=== PATIENT | female | born 1995 | race American Indian/Alaskan Native ===

== ENCOUNTER 2020-05-22 10:56 | Observation (INO) | payer SELFPAY ==
--- NOTE | 2020-05-22 11:14 | Event Note ---
ED Screening Note ED Screening Note: [facility] 05/14 TOLD ECTOPIC PREG GOT 2 SHOTS METHOTREXATE THEN SHE HAD BLEEDING 05/16 DEVELOPED ABD PAIN DID NOT FOLLOW UP WITH OBGYN BC OF INSURANCE VSS G2 MIS 1 ECTOP 1 03/16 LMP This initial assessment/diagnostic orders/clinical plan/treatment(s) is/are subject to change based on patients health status, clinical progression and re- assessment by fellow clinical providers in the ED. Further treatment and workup at subsequent clinical providers discretion. Patient/guardian urged not to elope from the ED as their condition may be serious if not clinically assessed and managed. Initial orders include: UA WILL NEED [facility] RECORDS US
[2020-05-22 11:48] LABS: Bilirubin,Urine NEG (Negative); Blood,Urine NEG (Negative); Color,Urine Yellow (Yellow); Mucus,Urine FEW /HPF; Protein,Urine <15 mg/dL mg/dL (Negative); Urobilinogen,Urine < 2.0 mg/dL (<2.0)
--- NOTE | 2020-05-22 12:34 | Ultrasound Report ---
ULTRASOUND OBSTETRIC INDICATION / CLINICAL INFORMATION: abd pain post ectopic. TECHNIQUE: Transabdominal. COMPARISON: None available. FINDINGS: GESTATIONAL SAC: No evidence of a gestational sac, yolk sac or pole within the uterus ADNEXA: However there is a saclike structure in the left adnexa with possible pole measuring 0. 36 cm = 6 weeks 0 days. No heart motion identified. FREE FLUID: None. ADDITIONAL FINDINGS: None. IMPRESSION: 1. Ultrasound findings most consistent with an ectopic on the left CRITICAL RESULT: Time of Discovery: 1120 hours Central time Time of Communication: 1126 hours Central time Licensed Practitioner Receiving Report: Ana Leroy was notified of these findings pers onally by Dr. Davila Read Back Performed: Yes. Signer Name: Simón Davila MD Signed: 05/22/2020 12:30 PM Workstation Name: [id number]
--- NOTE | 2020-05-22 13:13 | Emergency Department Report ---
ED General Adult HPI - General Chief complaint: Abdominal Pain Stated complaint: ECTOPIC /CRAMPING Time Seen by Provider: 05/22/20 11:11 Source: patient Mode of arrival: Ambulatory Limitations: No Limitations - History of Present Illness Initial comments: 25-year-old female presenting with chief complaint of pelvic pain over the past couple weeks. She states that she was seen at [facility], diagnosed with ectopic and given an injection of methotrexate on May 14. She states that she has had persistent pain though no bleeding prompting her to come here today. She states she has been unable to follow-up outpatient due to insurance issue. Pain is mild to moderate, no alleviating or exacerbating factors. No other associated symptoms. Does not radiate. - Related Data Allergies Allergy/AdvReac Type Severity Reaction Status Date / Time No Known Allergies Allergy Unverified 05/22/20 11:01 ED Review of Systems ROS: Stated complaint: ECTOPIC /CRAMPING Other details as noted in HPI Comment: All other systems reviewed and negative Gastrointestinal: as per HPI Genitourinary: as per HPI ED Past Medical Hx - Past Medical History Previous Medical History?: No - Surgical History Past Surgical History?: No - Social History Smoking Status: Never Smoker Substance Use Type: None ED Physical Exam - General Limitations: No Limitations General appearance: alert, in no apparent distress - Head Head exam: Present: atraumatic, normocephalic - Eye Eye exam: Present: normal appearance - ENT ENT exam: Present: mucous membranes moist - Neck Neck exam: Present: normal inspection - Respiratory Respiratory exam: Present: normal lung sounds bilaterally. Absent: respiratory distress - Cardiovascular Cardiovascular Exam: Present: regular rate, normal rhythm. Absent: systolic murmur, diastolic murmur, rubs, gallop - GI/Abdominal GI/Abdominal exam: Present: soft, tenderness (Left pelvic), normal bowel sounds. Absent: distended - Extremities Exam Extremities exam: Present: normal inspection - Back Exam Back exam: Present: normal inspection - Neurological Exam Neurological exam: Present: alert, oriented X3 - Psychiatric Psychiatric exam: Present: normal affect, normal mood - Skin Skin exam: Present: warm, dry, intact, normal color. Absent: rash ED Course Vital Signs 05/22/20 11:01 Temperature 97.5 F L Pulse Rate 89 Respiratory 18 Rate Blood Pressure 126/80 O2 Sat by Pulse 98 Oximetry ED Medical Decision Making - Lab Data Result diagrams: 05/22/20 13:09 05/22/20 13:09 - Radiology Data Radiology results: report reviewed Left adnexal mass consistent with ectopic - Medical Decision Making Patient presented with persistent pain after being treated for an ectopic at another facility 8 days ago. On my exam she does have some left- sided pelvic tenderness. Labs are pending. Ultrasound was obtained and shows a left adnexal mass consistent with ectopic . We will discuss with OB/G YN. I discussed findings of work-up today with Dr. Saint Leavitt, FOREP[employer] REDUCER who request patient receive an additional dose of methotrexate and then be admitted for observation to her service. I discussed this with the patient and she is in agreement with this plan. - Differential Diagnosis Ectopic , UTI Critical Care Time: Yes Critical care time in (mins) excluding proc time.: 31 (ectopic) Critical care attestation.: If time is entered above; I have spent that time in minutes in the direct care of this critically ill patient, excluding procedure time. ED Disposition Clinical Impression: Ectopic Qualifiers: Location of ectopic : tubal Intrauterine status: without intrauterine Laterality: left Qualified Code(s): O00.102 - Left tubal without intrauterine Disposition: - OP ADMIT IP TO THIS HOSP Is pt being admited?: Yes Condition: Stable Instructions: Abdominal Pain (ED) Referrals: PRIMARY CARE, [Primary Care Provider] - 3-5 Days
[2020-05-22 13:45] LABS: Basophils % (Auto) 0.6 % (0.0-1.8); Eosinophils # (Auto) 0.2 K/mm3 (0.0-0.4); Eosinophils % (Auto) 3.2 % (0.0-4.3); Hematocrit 39.1 % (30.3-42.9); Hemoglobin 13.3 gm/dl (10.1-14.3); Lymphocytes # (Auto) 2.1 K/mm3 (1.2-5.4); Lymphocytes % (Auto) 32.1 % (13.4-35.0); Mean Corpuscular HGB Conc 34 % (30-34); Mean Corpuscular Volume 86 fl (79-97); Monocytes # (Auto) 0.4 K/mm3 (0.0-0.8); Monocytes % (Auto) 5.9 % (0.0-7.3); Platelet Count 349 K/mm3 (140-440); Red Blood Count 4.57 M/mm3 (3.65-5.03); Red Cell Distribution Width 14.2 % (13.2-15.2)
[2020-05-22 13:57] LABS: Alanine Aminotransferase 18 units/L (7-56); Blood Urea Nitrogen 9 mg/dL (7-17); Calcium 9.3 mg/dL (8.4-10.2); Hemolysis Index 6
[2020-05-22 14:04] LABS: BUN/Creatinine Ratio 13
[2020-05-22] MEDS ORDERED: SODIUM CHLORIDE 0.9% 1000 ML 1,000 ML IV SCH (15:00)
[2020-05-22] MEDS ORDERED: oxyCODONE /ACETAMINOPHEN 5-325MG TAB PO PRN ×2 (20:03)
[2020-05-22] MEDS: D5W/LACTATED RINGERS 1,000 ML IV SCH (21:22)
[2020-05-23] MEDS: D5W/LACTATED RINGERS 1,000 ML IV SCH (05:14)
--- NOTE | 2020-05-23 10:11 | Progress Note ---
Assessment and Plan - Patient Problems (1) Ectopic Current Visit: Yes Status: Acute Qualifiers: Location of ectopic : tubal Intrauterine status: without intrauterine Laterality: left Qualified Code(s): O00.102 - Left tubal without intrauterine Plan to address problem: will continue medical management of ectopic secondary to patient remaining hemodynamically and clinically stable Recommend follow-up in 1 week for reevaluation hCG levels continue to decline Subjective - Subjective Date of service: 05/23/20 Interval history: 25-year-old who presents with a history of a left ectopic . The patient is status post methotrexate therapy May 14 and she represented with pelvic pain however no evidence of active bleeding. Pelvic ultrasound in the emergency department confirmed findings of a left ectopic without evidence of cardiac activity. The patient was readmitted for observation and received a second methotrexate dose. She remains clinically stable at this time. Today the patient reports that her pain is significantly improved. Patient reports: appetite normal Objective - Vital Signs Latest vital signs: Vital Signs Temp Pulse Resp BP BP Pulse Ox 05/23/20 07:46 97.7 F 75 16 129/77 97 05/23/20 06:35 97.0 F L 69 18 127/76 100 05/23/20 00:36 97.9 F 95 H 20 126/75 96 05/22/20 21:11 97.7 F 97 H 24 98 05/22/20 21:10 97.7 F 97 H 24 137/86 98 05/22/20 18:50 97.5 F L 18 133/81 05/22/20 18:31 98.7 F 76 17 128/87 100 05/22/20 17:19 98.7 F 76 17 128/87 100 05/22/20 11:01 97.5 F L 89 18 126/80 98 Intake and Output 05/22/20 05/23/20 05/23/20 22:59 06:59 14:59 Intake Total 360 983.333 Balance 360 983.333 Intake: IV 983.333 D5lr 1,000 ml @ 125 mls/ 983.333 hr IV DIRECT JANES Rx#: [id number] Intake, Free Water 360 Other: Voiding Method Toilet Toilet # Voids Void 1 - Labs Labs: Abnormal lab results 05/22/20 05/22/20 05/23/20 Range/Units 12:14 13:09 07:29 Glucose 110 H (65-100) mg/dL HCG, Quant 440.3 H 305.1 H (0-4) mIU/mL
--- NOTE | 2020-05-23 10:17 | Short Stay Summary ---
Short Stay Documentation Date of service: 05/23/20 Narrative H&P: 25-year-old who presents with findings of a left ectopic . The patient is status post methotrexate therapy May 14 and represented to the ED with a complaint of pelvic pain. Pelvic ultrasound confirmed findings of a contained left ectopic without evidence of active bleeding and no evidence of a hemoperitoneum. The patient was admitted for observation continued to have improvement in symptoms. She received an additional dose of methotrexate during the hospitalization. - History Principal diagnosis: Ectopic Past Medical History: No medical history Past Surgical History: No surgical history Social history: single - Allergies and Medications Current Medications: Allergies No Known Allergies Allergy (Unverified 05/22/20 11:01) Home Medications Medication Instructions Recorded Confirmed Last Taken Type HYDROcodone/APAP 5-325 [Madison 1 each PO Q6HR PRN #20 tablet 05/23/20 Unknown Rx 5/325] Active Medications Dextrose/Lactated Ringer's (D5lr) 1,000 mls @ 125 mls/hr IV DIRECT JANES Last Admin: 05/23/20 05:14 Dose: 125 mls/hr Documented by: Oxycodone/Acetaminophen (Oxycodone /Acetaminophen 5-325mg Tab) 1 tab PO Q6H PRN PRN Reason: Pain, Moderate (4-6) Last Admin: 05/22/20 21:37 Dose: 1 tab Documented by: Oxycodone/Acetaminophen (Oxycodone /Acetaminophen 5-325mg Tab) 2 tab PO Q6H PRN PRN Reason: Pain , Severe (7-10) Sodium Chloride (Sodium Chloride 0.9% 10 Ml Flush Syringe) 10 ml IV PRN PRN PRN Reason: LINE FLUSH - Hospital course Hospital course: 25-year-old admitted for an ectopic that was was hemodynamically and clinically stable. The patient was admitted for observation received a second dose of methotrexate. Pelvic ultrasound did not demonstrate any evidence of active bleeding or hemoperitoneum. - Disposition Condition at discharge: Good Disposition: - TO HOME OR SELFCARE - Discharge Diagnoses (1) Ectopic Status: Acute Qualifiers: Location of ectopic : tubal Intrauterine status: without intrauterine Laterality: left Qualified Code(s): O00.102 - Left tubal without intrauterine Short Stay Discharge Plan Activity: other (Pelvic rest) Diet: regular Additional Instructions: Schedule follow-up with primary INSPECTOR [employer] provider in 1 week Bleeding and pain precautions given. Patient may follow-up with Dr. Sood in [address] [place] [address] [place] [address] [phone] Forms: Work/School Excuse Out Patient, Work/School Release Form Prescriptions: HYDROcodone/APAP 5-325 [Madison 5/325] 1 each PO Q6HR PRN #20 tablet PRN Reason: Pain
[2020-05-23 11:55] VITALS: BP 132/88
== END 2020-05-23 11:55 | disposition home or self-care (01) ==
LOC: ED 10:56 → OB 16:41
PROVIDERS: ADMIT Obstetrics & Gynecology; ATTEND Obstetrics & Gynecology
DX: O00.102 Left tubal pregnancy without intrauterine pregnancy (principal); Z3A.01 Less than 8 weeks gestation of pregnancy
CPT/HCPCS: 36415; 76801; 76817; 80053; 81001; 84702; 85025; 86850; 86900; 86901; 96360; 96361; 96372; 99291; G0378; J7121; J9260

== ENCOUNTER 2020-11-23 12:50 | Emergency (ER) | payer MEDICAID ==
[2020-11-23 13:25] VITALS: BP 122/55
[2020-11-23] MEDS ORDERED: ACETAMINOPHEN 325 MG TAB PO ONE (15:45)
--- NOTE | 2020-11-23 15:45 | Emergency Department Report ---
ED HPI - General Chief complaint: Vaginal Bleeding Stated complaint: SPOTTING Time Seen by Provider: 11/23/20 15:01 Source: patient Mode of arrival: Ambulatory Limitations: No Limitations - History of Present Illness Initial comments: 25-year-old female presents to the ER today with complaints of vaginal spotting. Patient states that when she went to use the bathroom today and when she wiped she noticed dark brown blood on the tissue. Patient states that she is currently approximately 6 weeks based on her last menstrual cycle which is October 17, 2020. Patient states that she had confirmation of last week of life cycle FACETOR. She does not have a follow-up visit scheduled as yet because she is waiting on her insurance to be approved. In addition to the vaginal spotting she states that she started with mild intermittent lower abdominal discomfort 3 days ago but recently started having discomfort also in the epigastric area. She reports no nausea or vomiting. She reports no diarrhea or any other bowel changes. She denies any UTI symptoms or any abnormal vaginal discharge. Patient states that she is concerned because she had an ectopic in May 2020 requiring had to have 4 methotrexate injections. She is and one ectopic and 2 spontaneous miscarriages. Complaint: vaginal bleeding -: days(s) (1) - Related Data Previous Rx's Medication Instructions Recorded Last Taken Type HYDROcodone/APAP 5-325 [Almo 1 each PO Q6HR PRN #20 tablet 05/23/20 Unknown Rx 5/325] Allergies Allergy/AdvReac Type Severity Reaction Status Date / Time No Known Allergies Allergy Unverified 05/22/20 11:01 ED Review of Systems ROS: Stated complaint: SPOTTING Other details as noted in HPI Comment: All other systems reviewed and negative Constitutional: denies: chills, fever Eyes: denies: eye pain, eye discharge, vision change ENT: denies: ear pain, throat pain, dental pain, hearing loss, epistaxis, congestion Respiratory: denies: cough, orthopnea, shortness of breath, SOB with exertion, SOB at rest, wheezing Cardiovascular: denies: chest pain, palpitations, dyspnea on exertion, orthopn ea, edema, syncope, paroxysmal nocturnal dyspnea Gastrointestinal: abdominal pain. denies: nausea, vomiting, diarrhea, constipation, hematemesis, melena, hematochezia Genitourinary: other (Abnormal vaginal bleeding) Musculoskeletal: denies: back pain, joint swelling, arthralgia Skin: denies: rash, lesions Neurological: denies: headache, weakness, numbness, paresthesias, confusion, abnormal gait, vertigo Psychiatric: denies: anxiety, depression, auditory hallucinations, visual hallucinations, homicidal thoughts, suicidal thoughts Hematological/Lymphatic: denies: easy bleeding, easy bruising, swollen glands ED Past Medical Hx - Past Medical History Previous Medical History?: Yes Additional medical history: Ectopic - Surgical History Past Surgical History?: Yes Additional Surgical History: ectopic - Social History Smoking Status: Never Smoker Substance Use Type: None - Medications Home Medications: Home Medications Medication Instructions Recorded Confirmed Last Taken Type HYDROcodone/APAP 5-325 [Almo 1 each PO Q6HR PRN #20 tablet 05/23/20 Unknown Rx 5/325] ED Physical Exam - General Limitations: No Limitations General appearance: alert, in no apparent distress - Head Head exam: Present: atraumatic, normocephalic, normal inspection - Eye Eye exam: Present: normal appearance, PERRL, EOMI Pupils: Present: normal accommodation - ENT ENT exam: Present: normal exam, mucous membranes moist - Neck Neck exam: Present: normal inspection, full ROM. Absent: tenderness - Respiratory Respiratory exam: Present: normal lung sounds bilaterally. Absent: respiratory distress, wheezes, rales, rhonchi - Cardiovascular Cardiovascular Exam: Present: regular rate, normal rhythm, normal heart sounds - GI/Abdominal GI/Abdominal exam: Present: soft, tenderness (Mild tenderness to the right lower quadrant without any McBurney's point tenderness, no guarding, rebound or rigidity). Absent: distended - Neurological Exam Neurological exam: Present: alert, oriented X3, CN II-XII intact, normal gait - Psychiatric Psychiatric exam: Present: normal affect, normal mood - Skin Skin exam: Present: intact ED Course Vital Signs 11/23/20 11/23/20 11/23/20 13:23 17:05 17:36 Temperature 99 F Pulse Rate 79 Respiratory 20 16 20 Rate Blood Pressure 122/55 O2 Sat by Pulse 100 Oximetry ED Medical Decision Making - Lab Data Result diagrams: 11/23/20 15:47 11/23/20 15:47 - Radiology Data Radiology results: report reviewed Patient: MO MARTINEZ MR#: [id number] : 1995 Acct:[id number] Age/Sex: 25 / F ADM Date: 11/23/20 Loc: ED Attending Dr: Ordering Physician: MARY JO MULLIGAN Date of Service: 11/23/20 Procedure(s): US OB limited Accession Number(s): [id number] cc: MARY JO MULLIGAN ULTRASOUND PELVIS INDICATION: vag spotting, about 6wks/hx ectopic. TECHNIQUE: Transabdominal. Transvaginal Duplex Color Doppler used: Yes. COMPARISON: None available FINDINGS: Uterus: Present. Size: 7.3 x 4.7 x 6.8 cm. Endometrial complex: Early viable intrauterine dated 7 weeks 0 days. heart tones 127 bpm. Small subchorionic hemorrhage. Mass lesions: None. Additional findings: None. Right Ovary -- Normal. Blood flow: Normal. Cyst or mass: 2.7 cm complex cystic lesion right ovary. Left Ovary-- Normal. Blood flow: Normal. Cyst or mass: None. Urinary Bladder: Normal. Free Fluid: Moderate Additional Findings: None. IMPRESSION: 1. Early viable intrauterine dated 7 weeks 0 days with small subchorionic hemorrhage. 2. Moderate free fluid. 3. Probable corpus luteum cyst right ovary. Signer Name: Jovi Baugh MD Signed: 11/23/2020 5:08 PM Workstation Name: [id number] Transcribed By: ES Dictated By: Jovi Baugh MD Electronically Authenticated By: Jovi Baugh MD Signed Date/Time: 11/23/20 1708 - Medical Decision Making Patient resting comfortably. She is not currently in any acute distress. She actually reports improvement of her pain after Tylenol (3/10). She has a soft nonsurgical abdominal exam. She is well-appearing and nontoxic and neurologically intact. Her vital signs are stable. Labs reviewed --CBC and CMP unremarkable. Urinalysis [place] [id number]. OB ultrasound shows a 7 weeks intrauterine , small subchorionic bleed and moderate free fluid and a corpus luteum cyst. Discussed lab and imaging results with patient. She reported no worsening bleeding since she has been in the ER. Patient states she is hoping to have her first appointment with her FACETOR with hopes that her insurance will be approved by then. Recommend that she follows up but if her symptoms worsens or changes in any way to return to the ER. In the meantime recommend no strenuous activity or sexual contact and she can take Tylenol for pain. Patient expressed understanding of instructions and agree with plan. Patient was stable at time of discharge. Critical care attestation.: If time is entered above; I have spent that time in minutes in the direct care of this critically ill patient, excluding procedure time. ED Disposition Clinical Impression: Threatened miscarriage, Subchorionic bleed Disposition: DC- TO HOME OR SELFCARE Is pt being admited?: No Does the pt Need Aspirin: No Condition: Stable Instructions: Threatened Miscarriage, Subchorionic Hematoma Additional Instructions: I recommend you take Tylenol as needed for pain. Recommend no strenuous activity of sexual intercourse until follow-up with FACETOR. Return to the ER if your pain or bleeding worsens in any way. Referrals: PRIMARY CARE, [Primary Care Provider] - 3-5 Days Forms: Work/School Release Form(ED) Time of Disposition: 17:33
[2020-11-23 16:05] LABS: Basophils # (Auto) 0.1 K/mm3 (0.0-0.1); Basophils % (Auto) 1.3 % (0.0-1.8); Eosinophils # (Auto) 0.1 K/mm3 (0.0-0.4); Eosinophils % (Auto) 2.2 % (0.0-4.3); Hematocrit 39.4 % (30.3-42.9); Hemoglobin 13.4 gm/dl (10.1-14.3); Lymphocytes # (Auto) 2.2 K/mm3 (1.2-5.4); Lymphocytes % (Auto) 32.7 % (13.4-35.0); Mean Corpuscular HGB Conc 34 % (30-34); Mean Corpuscular Volume 85 fl (79-97); Monocytes # (Auto) 0.5 K/mm3 (0.0-0.8); Monocytes % (Auto) 7.8 % (0.0-7.3); Platelet Count 332 K/mm3 (140-440); Red Blood Count 4.65 M/mm3 (3.65-5.03); Red Cell Distribution Width 14.6 % (13.2-15.2)
[2020-11-23 16:23] LABS: Alanine Aminotransferase 13 units/L (7-56); Albumin 4.2 g/dL (3.9-5); Blood Urea Nitrogen 7 mg/dL (7-17); Calcium 9.7 mg/dL (8.4-10.2); Hemolysis Index 10
[2020-11-23 16:24] LABS: BUN/Creatinine Ratio 10
[2020-11-23 16:38] LABS: Bilirubin,Urine NEG (Negative); Blood,Urine NEG (Negative); Color,Urine Yellow (Yellow); Mucus,Urine FEW /HPF; Protein,Urine <15 mg/dL mg/dL (Negative); Urobilinogen,Urine < 2.0 mg/dL (<2.0)
== END 2020-11-23 17:41 | disposition home or self-care (01) ==
LOC: ED 12:50
DX: O20.0 Threatened abortion (principal); O20.8 Other hemorrhage in early pregnancy; Z3A.01 Less than 8 weeks gestation of pregnancy; Z98.890 Other specified postprocedural states; Z79.899 Other long term (current) drug therapy
CPT/HCPCS: 36415; 76801; 76815; 76817; 80053; 81001; 84702; 85025; 86900; 86901; 99284

== ENCOUNTER 2020-12-13 03:17 | Emergency (ER) | payer MEDICAID ==
[2020-12-13 06:09] LABS: Basophils # (Auto) 0.1 K/mm3 (0.0-0.1); Basophils % (Auto) 0.6 % (0.0-1.8); Eosinophils # (Auto) 0.2 K/mm3 (0.0-0.4); Eosinophils % (Auto) 2.3 % (0.0-4.3); Hematocrit 39.3 % (30.3-42.9); Hemoglobin 13.3 gm/dl (10.1-14.3); Lymphocytes # (Auto) 3.1 K/mm3 (1.2-5.4); Lymphocytes % (Auto) 32.8 % (13.4-35.0); Mean Corpuscular HGB Conc 34 % (30-34); Mean Corpuscular Volume 85 fl (79-97); Monocytes # (Auto) 0.6 K/mm3 (0.0-0.8); Monocytes % (Auto) 6.5 % (0.0-7.3); Platelet Count 309 K/mm3 (140-440); Red Cell Distribution Width 14.5 % (13.2-15.2)
[2020-12-13 06:24] LABS: Bacteria,Urine 1+ /HPF (Negative); Bilirubin,Urine NEG (Negative); Blood,Urine NEG (Negative); Color,Urine Colorless (Yellow); Protein,Urine <15 mg/dL mg/dL (Negative); RBC,Urine < 1.0 /HPF (0.0-6.0); Urobilinogen,Urine < 2.0 mg/dL (<2.0); WBC,Urine < 1.0 /HPF (0.0-6.0)
--- NOTE | 2020-12-13 08:52 | Emergency Department Report ---
<DANIELLE AYALA - Last Filed: 12/13/20 09:47> ED HPI - General Chief complaint: Urogenital-Female Stated complaint: VAGINAL DISCHARGE/9WKS Time Seen by Provider: 12/13/20 07:41 Source: patient Mode of arrival: Ambulatory Limitations: No Limitations - History of Present Illness Initial comments: 25-year-old female 9 weeks presents to the ER c/o mucus-like discharge from her vagina yesterday. She denies any vaginal bleeding she denies abdominal pain . She reports seeing her [facility] 2 days ago( [facility] ). she has a follow-up appointment with them next for a repeat ultrasound. Review of records revealed that patient was seen in this emergency room on November 23 transvaginal ultrasound showed 7 weeks viable intrauterine . She is in no distress currently with no abdominal pain. Associated symptoms: denies other symptoms Vaginal bleeding: none Pre- care: followed by OB - Related Data : 2 Para: 0 Ab: 2 (Miscarriages 1 ectopic) Previous Rx's Medication Instructions Recorded Last Taken Type HYDROcodone/APAP 5-325 [[place] 1 each PO Q6HR PRN #20 tablet 05/23/20 Unknown Rx 5/325] Allergies Allergy/AdvReac Type Severity Reaction Status Date / Time No Known Allergies Allergy Unverified 05/22/20 11:01 ED Review of Systems Comment: All other systems reviewed and negative Constitutional: no symptoms reported Cardiovascular: as per HPI Endocrine: no symptoms reported Gastrointestinal: nausea. denies: abdominal pain, diarrhea, constipation, hematemesis Genitourinary: discharge (Mucoid discharge). denies: urgency, hematuria Musculoskeletal: denies: back pain, joint swelling Neurological: headache (Mild headache). denies: weakness ED Past Medical Hx - Past Medical History Previous Medical History?: Yes Additional medical history: Ectopic - Surgical History Past Surgical History?: Yes Additional Surgical History: ectopic - Social History Smoking Status: Never Smoker Substance Use Type: None - Medications Home Medications: Home Medications Medication Instructions Recorded Confirmed Last Taken Type HYDROcodone/APAP 5-325 [[place] 1 each PO Q6HR PRN #20 tablet 05/23/20 Unknown Rx 5/325] ED Physical Exam - General Limitations: No Limitations General appearance: alert, in no apparent distress - Head Head exam: Present: atraumatic - Eye Eye exam: Present: normal appearance - ENT ENT exam: Present: normal exam - Neck Neck exam: Present: normal inspection - Respiratory Respiratory exam: Present: normal lung sounds bilaterally. Absent: respiratory distress, wheezes, rales - Cardiovascular Cardiovascular Exam: Present: regular rate, normal heart sounds - GI/Abdominal GI/Abdominal exam: Present: soft. Absent: distended, tenderness, guarding, rebound - Rectal Rectal exam: Absent: deferred - Extremities Exam Extremities exam: Present: normal inspection - Back Exam Back exam: Present: normal inspection. Absent: CVA tenderness (R), CVA tenderness (L) - Neurological Exam Neurological exam: Present: alert, oriented X3 - Psychiatric Psychiatric exam: Present: normal affect - Skin Skin exam: Present: warm, dry, intact, normal color ED Course - Reevaluation(s) Reevaluation #1: 12/13/20 09:30 Patient with in no distress reports no vaginal bleeding no abdominal pain ED Medical Decision Making - Lab Data Result diagrams: 12/13/20 05:34 - Medical Decision Making 25-year-old female 9 weeks presents to the emergency room stating that she passed a mucoid-like discharge from her vagina yesterday. She denies any abdominal pain no vaginal bleeding she was last seen by her [facility] 2 days ago. She is scheduled for follow-up with [facility] next week.she has a ultrasound scheduled for next . Blood work has no acute findings .normal limits hCG quant. Her urine shows no signs of infection. Plan is for p atient to continue follow-up with [facility]. Review of records revealed ultrasound report that shows viable intrauterine on November 23, 2020 - Differential Diagnosis Normal Critical Care Time: No ED Disposition Clinical Impression: Positive test, History of vaginal discharge Disposition: - TO HOME OR SELFCARE Is pt being admited?: No Does the pt Need Aspirin: No Condition: Stable Instructions: First Trimester of , [id number], Eating Plan for Women Additional Instructions: Return to the emergency room if you develop abdominal pain and vaginal bleeding. Follow-up with [facility] as scheduled. Continue to rest eat balanced meals drink plenty of fluids. Referrals: PRIMARY CARE, [Primary Care Provider] - 3-5 Days Time of Disposition: 09:37 <TERESA TINSLEY - Last Filed: 12/13/20 15:48> ED Review of Systems ROS: Stated complaint: VAGINAL DISCHARGE/9WKS Other details as noted in HPI ED Course Vital Signs 12/13/20 12/13/20 05:00 10:03 Temperature 98.3 F Pulse Rate 78 70 Respiratory 18 18 Rate Blood Pressure 136/64 Blood Pressure 118/68 [Left] O2 Sat by Pulse 100 100 Oximetry ED Medical Decision Making - Lab Data Result diagrams: 12/13/20 05:34 Vital Signs 12/13/20 12/13/20 05:00 10:03 Temperature 98.3 F Pulse Rate 78 70 Respiratory 18 18 Rate Blood Pressure 136/64 Blood Pressure 118/68 [Left] O2 Sat by Pulse 100 100 Oximetry Lab Results 12/13/20 12/13/20 12/13/20 Range/Units 05:34 05:34 05:34 WBC 9.6 (4.5-11.0) K/mm3 RBC 4.60 (3.65-5.03) M/mm3 Hgb 13.3 (10.1-14.3) gm/dl Hct 39.3 (30.3-42.9) % MCV 85 (79-97) fl MCH 29 (28-32) pg MCHC 34 (30-34) % RDW 14.5 (13.2-15.2) % Plt Count 309 (140-440) K/mm3 Lymph % (Auto) 32.8 (13.4-35.0) % [place] % (Auto) 6.5 (0.0-7.3) % Eos % (Auto) 2.3 (0.0-4.3) % Baso % (Auto) 0.6 (0.0-1.8) % Lymph # (Auto) 3.1 (1.2-5.4) K/mm3 [place] # (Auto) 0.6 (0.0-0.8) K/mm3 Eos # (Auto) 0.2 (0.0-0.4) K/mm3 Baso # (Auto) 0.1 (0.0-0.1) K/mm3 Seg Neutrophils % 57.8 (40.0-70.0) % Seg Neutrophils # 5.5 (1.8-7.7) K/mm3 HCG, Quant [id number] H (0-4) mIU/mL Urine Color (Yellow) Urine Turbidity (Clear) Urine pH (5.0-7.0) Ur Specific [place] (1.003-1.030) Urine Protein (Negative) mg/dL Urine Glucose (UA) (Negative) mg/dL Urine Ketones (Negative) mg/dL Urine Blood (Negative) Urine Nitrite (Negative) Urine Bilirubin (Negative) Urine Urobilinogen (<2.0) mg/dL Ur Leukocyte Esterase (Negative) Urine WBC (Auto) (0.0-6.0) /HPF Urine RBC (Auto) (0.0-6.0) /HPF U Epithel Cells (Auto) (0-13.0) /HPF Urine Bacteria (Auto) (Negative) /HPF Blood Type O POSITIVE 12/13/20 Range/Units Unknown WBC (4.5-11.0) K/mm3 RBC (3.65-5.03) M/mm3 Hgb (10.1-14.3) gm/dl Hct (30.3-42.9) % MCV (79-97) fl MCH (28-32) pg MCHC (30-34) % RDW (13.2-15.2) % Plt Count (140-440) K/mm3 Lymph % (Auto) (13.4-35.0) % [place] % (Auto) (0.0-7.3) % Eos % (Auto) (0.0-4.3) % Baso % (Auto) (0.0-1.8) % Lymph # (Auto) (1.2-5.4) K/mm3 [place] # (Auto) (0.0-0.8) K/mm3 Eos # (Auto) (0.0-0.4) K/mm3 Baso # (Auto) (0.0-0.1) K/mm3 Seg Neutrophils % (40.0-70.0) % Seg Neutrophils # (1.8-7.7) K/mm3 HCG, Quant (0-4) mIU/mL Urine Color Colorless (Yellow) Urine Turbidity Clear (Clear) Urine pH 6.0 (5.0-7.0) Ur Specific [place] 1.003 (1.003-1.030) Urine Protein <15 mg/dl (Negative) mg/dL Urine Glucose (UA) Neg (Negative) mg/dL Urine Ketones Neg (Negative) mg/dL Urine Blood Neg (Negative) Urine Nitrite Neg (Negative) Urine Bilirubin Neg (Negative) Urine Urobilinogen < 2.0 (<2.0) mg/dL Ur Leukocyte Esterase Neg (Negative) Urine WBC (Auto) < 1.0 (0.0-6.0) /HPF Urine RBC (Auto) < 1.0 (0.0-6.0) /HPF U Epithel Cells (Auto) 1.0 (0-13.0) /HPF Urine Bacteria (Auto) 1+ (Negative) /HPF Blood Type Critical care attestation.: If time is entered above; I have spent that time in minutes in the direct care of this critically ill patient, excluding procedure time. ED Disposition Is pt being admited?: No Does the pt Need Aspirin: No
[2020-12-13 10:03] VITALS: BP 118/68
== END 2020-12-13 10:03 | disposition home or self-care (01) ==
LOC: ED 03:17
DX: O26.891 Other specified pregnancy related conditions, first trimester (principal); N89.8 Other specified noninflammatory disorders of vagina; Z3A.09 9 weeks gestation of pregnancy; Z79.899 Other long term (current) drug therapy; Z98.890 Other specified postprocedural states
CPT/HCPCS: 36415; 81001; 84702; 85025; 86900; 86901

== ENCOUNTER 2021-03-31 14:54 | Outpatient (CLI) | payer MEDICAID ==
[2021-03-31 15:01] VITALS: BP 124/63
[2021-03-31] MEDS ORDERED: LACTATED RINGERS 1,000 ML IV ONE (16:05)
[2021-03-31 17:34] LABS: Bilirubin,Urine NEG (Negative); Blood,Urine NEG (Negative); Color,Urine Yellow (Yellow); Mucus,Urine FEW /HPF; Protein,Urine <15 mg/dL mg/dL (Negative); Urobilinogen,Urine < 2.0 mg/dL (<2.0)
== END 2021-03-31 17:30 | disposition home or self-care (01) ==
LOC: TRG 14:54 → APU 14:54 → TRG 17:30
PROVIDERS: ATTEND Obstetrics & Gynecology
DX: Z34.92 Encounter for supervision of normal pregnancy, unspecified, second trimester (principal); Z3A.24 24 weeks gestation of pregnancy
CPT/HCPCS: 59025; 81001

== ENCOUNTER 2021-06-30 12:13 | Outpatient (CLI) | payer MEDICAID ==
[2021-06-30 12:51] VITALS: BP 133/84
--- NOTE | 2021-06-30 15:48 | Ultrasound Report ---
ULTRASOUND BIOPHYSICAL PROFILE INDICATION: MARIKA, EFW. COMPARISON: None available. FINDINGS: heart rate is 166 beats per minute. breathing movement = 2 Gross body movement = 2 tone = 2 Qualitative amniotic fluid volume = 2 IMPRESSION: biophysical profile = 12/28 Signer Name: Anish Kwon Jr, MD Signed: 06/30/2021 3:44 PM Workstation Name: [id number]
--- NOTE | 2021-06-30 15:51 | Ultrasound Report ---
ULTRASOUND OBSTETRIC COMPLETE INDICATION / CLINICAL INFORMATION: MARIKA, EFW. Clinical Gestational Age (GA) in weeks.days: 37.3 TECHNIQUE: Transabdominal. COMPARISON: None available. FINDINGS: NUMBER: Single PRESENTATION: cephalic PLACENTA: Not imaged MATERNAL ADNEXA: No significant abnormality. AMNIOTIC FLUID VOLUME: normal AMNIOTIC FLUID INDEX (MARIKA) in cm (if measured): 16.1 ANATOMY: anatomical survey was not performed MEASUREMENTS: - Biparietal Diameter = 8.3 cm = 33.2 weeks.days - Head Circumference = 30.8 cm = 34.3 weeks.days - Abdominal Circumference = 29.5 cm = 33.4 weeks.days - Femur Length = 7.0 cm = 35.6 weeks.days - Estimated Weight (in grams, if calculated): 2388 - Heart Rate (beats per minute): 151 ADDITIONAL FINDINGS: None. PERCENTILE ESTIMATED WEIGHT (if calculated): 3 AVERAGE ULTRASOUND AGE (AUA) in weeks.days = 34.2 IMPRESSION: 1. Single intrauterine with AUA of 34.2 weeks.days 2. Normal MARIKA measuring 16.1 cm. Signer Name: Anish Kwon Jr, MD Signed: 06/30/2021 3:47 PM Workstation Name: [id number]
== END 2021-06-30 14:42 | disposition home or self-care (01) ==
LOC: TRG 12:13 → APU 12:17 → TRG 14:42
PROVIDERS: ATTEND Obstetrics & Gynecology
DX: O24.419 Gestational diabetes mellitus in pregnancy, unspecified control (principal); Z3A.37 37 weeks gestation of pregnancy
CPT/HCPCS: 76816; 76819

== ENCOUNTER 2021-07-13 13:16 | Emergency (ER) | payer MEDICAID ==
--- NOTE | 2021-07-13 14:52 | Emergency Department Report ---
- General Chief Complaint: Wound/Laceration Stated Complaint: ADOLFO CAME OUT/OPEN WOUND Time Seen by Provider: 07/13/21 14:26 Source: patient Mode of arrival: Ambulatory Limitations: No Limitations - History of Present Illness Initial Comments: 26-year-old black female who is a few days status post presents to the emergency department for wound check. She states that when she woke up this morning she noticed some bleeding to her abdominal binder. She states that she has pain, but pain is still the same type of pain that she has been having since her surgery. She denies fever, dizziness, n/v. -: Sudden Location: abdomen Place: home Associated Symptoms: pain. denies: suspect foreign body present, unable to move injured part, weakness followed by dizziness, nausea/vomiting, fever - Related Data Home Medications Medication Instructions Recorded Confirmed Last Taken Valacyclovir HCl [Valtrex] 1,000 mg PO QDAY 07/06/21 07/13/21 07/06/21 Previous Rx's Medication Instructions Recorded Last Taken Type Ibuprofen [Motrin] 600 mg PO Q8H PRN #60 tablet 07/07/21 Unknown Rx oxyCODONE /ACETAMINOPHEN [Percocet 1 tab PO Q6HR PRN #20 tablet 07/07/21 07/12/21 21:00 Rx 5/325] labetaloL [Labetalol 100mg TAB] 100 mg PO BID 30 Days #60 07/10/21 Unknown Rx Allergies Allergy/AdvReac Type Severity Reaction Status Date / Time No Known Allergies Allergy Verified 07/13/21 13:49 ED Review of Systems ROS: Stated complaint: ADOLFO CAME OUT/OPEN WOUND Other details as noted in HPI Comment: All other systems reviewed and negative Constitutional: denies: chills, diaphoresis, fever, malaise, weakness Eyes: denies: eye pain ENT: denies: ear pain, throat pain Respiratory: denies: orthopnea, shortness of breath, SOB with exertion, SOB at rest Cardiovascular: denies: chest pain, palpitations, syncope Endocrine: no symptoms reported Gastrointestinal: abdominal pain. denies: nausea, vomiting, diarrhea, hemate mesis, hematochezia Genitourinary: denies: urgency, dysuria, frequency Musculoskeletal: denies: back pain, joint swelling, arthralgia, myalgia Skin: denies: rash, lesions, pruritus Neurological: denies: headache, weakness, numbness, paresthesias Psychiatric: denies: anxiety Hematological/Lymphatic: denies: easy bleeding, easy bruising ED Past Medical Hx - Past Medical History Hx Hypertension: Yes Hx Diabetes: Yes (GDM) Hx Deep Vein Thrombosis: No Hx Renal Disease: No Hx Sickle Cell Disease: No Hx Seizures: No Hx Asthma: No Hx HIV: No Additional medical history: Ectopic - Surgical History Additional Surgical History: ectopic - Social History Smoking Status: Never Smoker - Medications Home Medications: Home Medications Medication Instructions Recorded Confirmed Last Taken Type Valacyclovir HCl [Valtrex] 1,000 mg PO QDAY 07/06/21 07/13/21 07/06/21 History Ibuprofen [Motrin] 600 mg PO Q8H PRN #60 tablet 07/07/21 07/13/21 Unknown Rx oxyCODONE /ACETAMINOPHEN [Percocet 1 tab PO Q6HR PRN #20 tablet 07/07/21 07/13/21 07/12/21 21:00 Rx 5/325] labetaloL [Labetalol 100mg TAB] 100 mg PO BID 30 Days #60 07/10/21 07/13/21 Unknown Rx ED Physical Exam - General Limitations: No Limitations General appearance: alert, in no apparent distress - Head Head exam: Present: atraumatic, normocephalic - Eye Eye exam: Present: normal appearance. Absent: conjunctival injection - Neck Neck exam: Present: normal inspection - Respiratory Respiratory exam: Present: normal lung sounds bilaterally. Absent: respiratory distress, wheezes, rales, rhonchi, stridor, chest wall tenderness, accessory muscle use - Cardiovascular Cardiovascular Exam: Present: regular rate, normal heart sounds - GI/Abdominal GI/Abdominal exam: Present: soft, tenderness (generalized), normal bowel sounds - Extremities Exam Extremities exam: Present: normal inspection - Back Exam Back exam: Present: normal inspection. Absent: tenderness, CVA tenderness (R), CVA tenderness (L) - Neurological Exam Neurological exam: Present: alert, oriented X3 - Psychiatric Psychiatric exam: Present: normal affect, normal mood - Skin Skin exam: Present: warm, dry, normal color - Expanded Skin Exam Expanded 1 - C section incision noted to be well approximated with no drainage noted. area tender to palpation. no erythema or edema noted. ED Course Vital Signs 07/13/21 07/13/21 13:48 16:04 Temperature 98.4 F 98.6 F Pulse Rate 60 82 Respiratory 18 Rate Blood Pressure 133/91 124/84 [Right] O2 Sat by Pulse 97 Oximetry ED Medical Decision Making - Medical Decision Making 26-year-old black female who is a few days status post presents to the emergency department for wound check. She states that when she woke up this morning she noticed some bleeding to her abdominal binder. She states that she has pain, but pain is still the same type of pain that she has been having since her surgery. She denies fever, dizziness, n/v. Incision examined and noted to be well approximated with no bleeding noted. Patient was advised to rest and no strenuous activity. She was advised to take medications as prescribed by pharmacy clinical specialist, continue to monitor incision and follow up with pharmacy clinical specialist as planned. She verbalized understanding of and agreement with plan of care. Critical care attestation.: If time is entered above; I have spent that time in minutes in the direct care of this critically ill patient, excluding procedure time. ED Disposition Clinical Impression: Encounter for wound re-check Disposition: 01 HOME / SELF CARE / HOMELESS Is pt being admited?: No Does the pt Need Aspirin: No Condition: Stable Instructions: Delivery, Care After, Care After Delivery Additional Instructions: Take medications as previously prescribed by CLINIC OFFICE MANAGER. Get rest. No heavy lifting sudden movements. Follow-up with CLINIC OFFICE MANAGER as previously planned. Return to the emergency department if worsening symptoms. Referrals: PRIMARY CARE, [Primary Care Provider] - 3-5 Days Time of Disposition: 14:52
[2021-07-13 16:05] VITALS: BP 124/84
== END 2021-07-13 16:05 | disposition home or self-care (01) ==
LOC: ED 13:16
DX: Z48.00 Encounter for change or removal of nonsurgical wound dressing (principal)
CPT/HCPCS: 99282